=== PATIENT | female | born 1975 | race Two or more races ===

== ENCOUNTER 2020-01-28 19:56 | Emergency (ER) | payer SELFPAY ==
[~2020-01-28] VITALS: Ht 160 cm; Wt 69.0 kg
[2020-01-28] MEDS ORDERED: KETOROLAC 30 MG/1 ML IM ONE (20:30)
[2020-01-28 20:40] LABS: BASOPHILS # (AUTO) 0.06 x10^3/uL (0-0.1); BASOPHILS % (AUTO) 1 % (0-1); EOSINOPHILS # (AUTO) 0.14 x10^3/uL (0-0.4); EOSINOPHILS % (AUTO) 2 % (1-7); LYMPHOCYTES # (AUTO) 2.96 x10^3/uL (1-3.4); LYMPHOCYTES % (AUTO) 34 % (22-44); MD NO; MEAN CORPUSCULAR HEMOGLOBIN 29.5 pg (27.0-34.8); MEAN CORPUSCULAR HGB CONC 33.1 g/dL (32.4-35.8); MEAN PLATELET VOLUME 9.4 fL (7.4-10.4); MONOCYTES # (AUTO) 0.71 x10^3/uL (0.2-0.8); MONOCYTES % (AUTO) 8 % (2-9); NEUTROPHILS # (AUTO) 4.98 x10^3/uL (1.8-6.8); NEUTROPHILS % (AUTO) 56 % (42-75); PLATELET COUNT 289 x10^3/uL (130-400); RED BLOOD COUNT 4.11 x10^6/uL (3.82-5.3); RED CELL DISTRIBUTION WIDTH 13.4 % (9.6-15.2)
[2020-01-28] MEDS ORDERED: KETOROLAC 30 MG/1 ML ONE (20:47)
[2020-01-28 20:51] LABS: ALANINE AMINOTRANSFERASE 20 U/L (12-78); ALBUMIN 3.3 g/dL (3.4-5.0); ANION GAP 6 mmol/L (5-15); CALCIUM 8.6 mg/dL (8.5-10.1); CHLORIDE 110 mmol/L (98-107)
[2020-01-28 20:55] LABS: ALKALINE PHOSPHATASE 78 U/L (45-117); BILIRUBIN,TOTAL 0.2 mg/dL (0.2-1.0); TOTAL PROTEIN 7.6 g/dL (6.4-8.2); TROPONIN I < 0.015 ng/mL (0.000-0.045)
[2020-01-28 21:44] VITALS: BP 142/83
--- NOTE | 2020-01-28 21:45 | NUR ---
LATE ENTRY FOR 2044: PT SITTING IN BED, RESPIRATIONS EVEN AND UNLABORED, NO SIGNS OF ACUTE DISTRESS. PT ON CARDIAC, BP AND O2 MONITOR. VSS. DAUGHTER AT BEDSIDE. ERP HAS BEEN TO BEDSIDE.
--- NOTE | 2020-01-28 21:46 | NUR ---
PT STATED SHE RECENTLY STARTED WEARING A MASK FOR 8 HOURS A DAY, INQUIRED IF THAT COULD BE CAUSING HER S/SX, EDUCATED THAT IT COULD BE A CONTRIBUTING FACTOR. ALL D/C QUESTIONS ANSWERED.
== END 2020-01-28 21:54 | disposition home or self-care (01) ==
LOC: ED 20:41
DX: M94.0 Chondrocostal junction syndrome [Tietze] (principal); R94.31 Abnormal electrocardiogram [ECG] [EKG]; M54.6 Pain in thoracic spine
CPT/HCPCS: 36415; 71045; 80053; 84484; 85025; 93005; 96372; 99285; J1885